=== PATIENT | female | born 1945 | race Caucasian/White ===

== ENCOUNTER → 2020-02-16 13:20 | Outpatient (CLI) | payer MEDICARE, OTHER, SELFPAY ==
--- NOTE | ~2020-02-16 | MM_ITS ---
EXAMINATION: MM screening [facility] BI w suyapa HISTORY: Screening TECHNIQUE: Craniocaudal and mediolateral oblique 3-D tomosynthesis images were obtained and synthetic 2-D images were generated. CAD analysis was submitted and interpreted. COMPARISON: Comparison to multiple prior studies sequentially, with oldest reviewed study dated 10/29. BREAST PARENCHYMAL COMPOSITION: There are scattered areas of fibroglandular density. FINDINGS: There is no evidence of suspicious mass, calcification, or architectural distortion to sugg est malignancy in either breast. There has been no suspicious interval change. IMPRESSION: 1. No mammographic evidence of malignancy. 2. Recommend routine screening mammography in one year. BI-RADS Category 1: Negative Reviewed, dictated and finalized at location A.
== END ==
PROVIDERS: PCP Family Medicine; Visit Provider Family Medicine
DX: Z12.31 Encounter for screening mammogram for malignant neoplasm of breast (principal)
CPT/HCPCS: 77063; 77067

== ENCOUNTER 2020-04-26 10:47 | Emergency (ER) | payer MEDICARE, OTHER, SELFPAY ==
[2020-04-26 10:54] VITALS: BP 176/73; PULSE 99; RESP 20; TEMP 36.8; O2SAT 100
--- NOTE | 2020-04-26 11:01 | ECG_ITS ---
Measurements Intervals [place] Rate: 87 P: 65 FL: 147 QRS: 3 QRSD: 105 T: 56 QT: 359 QTc: 432 Interpretive Statements SINUS RHYTHM NORMAL ECG Electronically Signed On 04-26-2020 11:27:49 [employer] by Sal Bishop D.O.
--- NOTE | 2020-04-26 11:06 | ED.GENADULT ---
HPI - General Adult General Chief complaint: Back Pain/Injury Stated complaint: back pain Time Seen by Provider: 04/26/20 11:00 Source: patient and RN notes reviewed Mode of arrival: ambulatory Limitations: no limitations History of Present Illness HPI narrative: 74 female presents with concern for left shoulder muscle spasm and pain for approximately 3 days. She denies any injury or direct trauma, however reports she has been doing a lot of yard work. Reports pain hurts worse when she is lying on her right side with her left arm dependent. Denies any decreased range of motion or strength. Reports taking Tylenol with no improvement, reports taking Aleve with mild improvement. Reports using ice. Denies any decrease sensation, range of motion, strength in left arm MD complaint: Left shoulder pain Related Data Home Medications Medication Instructions Recorded Confirmed aspirin [Aspirin Low Dose] 81 mg PO DAILY 04/26/20 04/26/20 cranberry fruit concentrate [Azo 25,000 mg PO DAILY 04/26/20 04/26/20 Cranberry] levothyroxine 100 mcg PO DAILY 04/26/20 04/26/20 multivitamin [Daily Multivitamin] 1 tablet PO DAILY 04/26/20 04/26/20 niacin 500 mg PO DAILY 04/26/20 04/26/20 pravastatin 40 mg PO DAILY 04/26/20 04/26/20 Allergies Allergy/AdvReac Type Severity Reaction Status Date / Time No Known Allergies Allergy Verified 04/26/20 11:05 Review of Systems Review of Systems: Narrative: CONSTITUTIONAL: Denies malaise, chills, sweats, or fever. CARDIOVASCULAR: Denies chest pain, palpitations, diaphoresis, or edema. RESPIRATORY: Denies cough or dyspnea. GASTROINTESTINAL: Denies abdominal pain, nausea, vomiting, diarrhea SKIN: Denies bruising, redness MUSCULOSKELETAL: Reports left posterior shoulder blade area pain that radiates to the shoulder joint NEUROLOGIC: Denies numbness, weakness. All systems reviewed & are unremarkable except as noted in HPI and below [facility] Family History Family History (Updated 02/11/15 @ 16:01 by DOCTOR UNKNOWN) Father Carcinoma of colon Patient's father is Acute myocardial infarction Mother Patient's mother is Acute myocardial infarction Social History Social History Smoking status: Never smoker Alcohol intake: never Comments At time of signature, agree with nursing past medical, surgical, social and family history. There is no relevant family history pertinent to the presenting complaint Exam Narrative: Exam Narrative: GENERAL: Well-appearing, well-nourished, and in no acute distress. HEAD: Normocephalic, atraumatic. EYES: PERRLA, conjunctivae clear NECK: Supple. CHEST: Speaks in full sentences. No respiratory distress. HEART: Regular rate and rhythm. Normal and equal peripheral pulses. EXTREMITIES: Left shoulder, arm has normal strength and sensation, normal range of motion. No edema or ecchymosis. 5/5 strength with left shoulder abduction, abduction flexion and extension. Normal sensation with sensitivity to light touch and pain. Mild scapular tenderness. No open wounds, no skin tenting, no devitalized tissue or atrophy, no trophic changes, no obvious deformity, alignment normal, nearby joints and structures intact. Distal pulses palpable and equal bilaterally, skin warm, dry, pink. Capillary refill less than 3 seconds. SKIN: Warm, dry, no rash. NEURO: Alert and oriented x3. PSYCH: Normal mood and affect Course Course Emergency Course: Patient is aware of diagnosis, understands and agrees to treatment plan. Anticipatory guidance given. Patient agrees to follow-up as directed and is aware of reasons to seek care at the emergency department. Portions of this record may have been created with voice recognition software Vital Signs Vital signs: Vital Signs Temperature 98.2 F 04/26/20 10:54 Pulse Rate 99 04/26/20 10:54 Respiratory Rate 20 04/26/20 10:54 Blood Pressure 176/73 H 04/26/20 10:54 Pulse Oximetry 100 04/26/20
== END 2020-04-26 11:22 | disposition home or self-care (01) ==
PROVIDERS: Emergency Provider Nurse Practitioner
DX: M62.838 Other muscle spasm (principal); E78.00 Pure hypercholesterolemia, unspecified; E03.9 Hypothyroidism, unspecified
CPT/HCPCS: 93005; 99213; G0463

== ENCOUNTER → 2020-06-11 10:53 | Outpatient (CLI) | payer MEDICARE, OTHER, SELFPAY ==
--- NOTE | ~2020-06-11 | DEXA_ITS ---
Bone Density Report Name: Mei Valentin Age: 74 Sex: Female Ethnicity: White Date of : 1945 Indication: osteopenia; parental hip fracture; postmenopausal Referring Provider: Jomar, Aureliano Peterson Study: Bone densitometry was performed. Exam Date: June 11, 2020 Accession number: [id number] Bone Density: Region BMD T-score Z-score Classification AP Spine (L1-L4) 0.871 -1.6 0.8 Osteopenia Femoral Neck (Left) 0.697 -1.4 0.7 Osteopenia Total Hip (Left) 0.925 -0.1 1.6 Normal Femoral Neck (Right) 0.636 -1.9 0.1 Osteopenia Total Hip (Right) 0.823 -1.0 0.8 Normal Total Hip Mean 0.874 -0.6 1.2 Normal World Health Organization criteria for BMD impression classify patients as: Normal (T-score at or above -1.0), Osteopenia (T-score between -1.0 and -2.5), or Osteoporosis (T-score at or below -2.5). 10-year Fracture Risk(1): Major Osteoporotic Fracture 20% Hip Fracture 11% Reported Risk Factors: [place] (), Neck BMD=0.636, BMI=31.3, parental fracture (1) FRAX(R) Version 3.08. Fracture probability calculated for an untreated patient. Fracture probability may be lower if the patient has received treatment. Previous Exams: Region Exam Age BMD T-score BMD Change BMD Change Date g/cm2 vs Baseline vs Previous AP Spine(L1-L4) 06/11/2020 74 0.871 -1.6 0.007 -0.031* 01/29/2013 67 0.902 -1.3 0.038* 0.038* 09/20/2009 63 0.865 -1.7 Total Hip(Left) 06/11/2020 74 0.925 -0.1 0.069* 0.031* 01/29/2013 67 0.894 -0.4 0.038* 0.038* 09/20/2009 63 0.856 -0.7 Total Hip(Right) 06/11/2020 74 0.823 -1.0 0.022 -0.093* 01/29/2013 67 0.916 -0.2 0.115* 0.115* 09/20/2009 63 0.801 -1.2 *Denotes significance at 95% confidence level, LSC for AP Spine = 0.022 g/cm2, LSC for Total Hip = 0.027 g/cm2 Clinical Information Provided by Patient: Parent has had a hip fracture Has used the following medications: Vitamin D Patient maximum height was 64 Menopause Age: 54 No regular weight bearing exercise Drinks caffeinated beverages Onset of menses at age 13 Number of children 4 Impression: The patient has low bone mass, based on the Right Femoral Neck T-score. The patient has an estimated ten-year risk of hip fracture of 11% and an estimated ten-year risk of major fracture of 20%, based on the WHO FRAX algorithm. The
== END ==
PROVIDERS: PCP Family Medicine; Visit Provider Family Medicine
DX: Z78.0 Asymptomatic menopausal state (principal); M85.88 Other specified disorders of bone density and structure, other site; M85.852 Other specified disorders of bone density and structure, left thigh; M85.851 Other specified disorders of bone density and structure, right thigh
CPT/HCPCS: 77080

== ENCOUNTER → 2020-08-13 05:06 | Outpatient (CLI) | payer MEDICARE, OTHER, SELFPAY ==
[2020-08-13 19:22] LABS: SARS-CoV-2 RNA PCR Negative
== END ==
PROVIDERS: PCP Family Medicine; Visit Provider Internal Medicine Gastroenterology
DX: Z01.812 Encounter for preprocedural laboratory examination (principal); Z20.822 Contact with and (suspected) exposure to COVID-19
CPT/HCPCS: C9803; U0003; U0005

== ENCOUNTER 2020-08-16 01:39 | Day surgery (SDC) | payer MEDICARE, OTHER, SELFPAY ==
[2020-08-16 07:26] VITALS: BP 143/65; PULSE 84; RESP 18; TEMP 36.9; O2SAT 98; BMI 30.4
[2020-08-16] MEDS: LACTATED RINGERS 1,000 ML 150 ML IV CONT (07:36)
--- NOTE | 2020-08-16 07:53 | PM.HPGS ---
History of Present Illness History of Present Illness Consent: Risks, benefits, and alternatives have been discussed and questions answered. Patient agrees to proceed with procedure. Chief complaint: Family Hx Of Colon Polyps Narrative: Mei Valentin is a 74 year old female here for colon cancer screening. She has family history of colon cancer and of polyps Review of Systems Review of Systems: All systems reviewed & are unremarkable except as noted in HPI and below PMFSH Family History Family History Father Carcinoma of colon Patient's father is Acute myocardial infarction Mother Patient's mother is Acute myocardial infarction Social History Social History Smoking status: Never smoker Alcohol intake: never Living arrangements: alone Gender identity (if verbalized by the patient): Female Spiritual care concerns: No Meds Home Medications and Allergies Home Medications Medication Instructions Recorded Confirmed Type aspirin [Aspirin Low Dose] 81 mg PO DAILY 04/26/20 08/16/20 History cranberry fruit concentrate [Azo 25,000 mg PO DAILY 04/26/20 08/16/20 History Cranberry] cyclobenzaprine 10 mg PO TID PRN #20 tablet 04/26/20 08/16/20 Rx levothyroxine 100 mcg PO DAILY 04/26/20 08/16/20 History multivitamin [Daily Multivitamin] 1 tablet PO DAILY 04/26/20 08/16/20 History naproxen 500 mg PO BID PRN #20 tablet 04/26/20 08/16/20 Rx niacin 500 mg PO DAILY 04/26/20 08/16/20 History pravastatin 40 mg PO DAILY 04/26/20 08/16/20 History sod picosulf 10 mg-magnes 3.5 160 ml PO BID #160 ml 07/22/20 08/16/20 Rx gram-citric 12 gram/160 mL oral solution Vitamin D3 2,000 units PO DAILY 07/30/20 08/16/20 History Allergies Allergy/AdvReac Type Severity Reaction Status Date / Time No Known Allergies Allergy Verified 08/16/20 07:04 Vital Signs Vital Signs - 24 hr 08/16/20 07:26 Temperature 36.9 C Pulse Rate 84 Respiratory Rate 18 Blood Pressure 143/65 H Pulse Oximetry 98 Exam Resp: Auscultation: clear to auscultation bilaterally Cardio: Rate: regular rate Rhythm: regular rhythm GI: GI Palp: Yes Soft to palpation and No Tenderness to palpation present (GI) Assessment and Plan Assessment and plan (1) Colon cancer screening: Code(s): Z12.11 - Encounter for screening for malignant neoplasm of colon Status: Acute Assessment and Plan: Colonoscopy with possible biopsy or polypectomy or cautery or injection of substances.
--- NOTE | 2020-08-16 08:06 | WPDANESEPPF ---
Anes - Initial Pre Proc Eval Procedure: Operation Date: 08/16/20 08:30 Proposed Procedures p Screening Colonoscopy - Reynold Roger MD Date/Time: 08/16/20 08:06 Surgeon: Reynold Roger MD Pre Op Diagnosis: Family Hx Of Colon Polyps Patient Data Age: 74 Gender: F Height: 5 ft 4 in Weight: 80.3 kg Last Vital Signs Temp 98.5 F 08/16/20 07:26 Pulse 84 08/16/20 07:26 Resp 18 08/16/20 07:26 BP 143/65 H 08/16/20 07:26 Pulse Ox 98 08/16/20 07:26 Allergies Allergy/AdvReac Type Severity Reaction Status Date / Time No Known Allergies Allergy Verified 08/16/20 07:04 Home Medications Medication Instructions Recorded Confirmed Type aspirin [Aspirin Low Dose] 81 mg PO DAILY 04/26/20 08/16/20 History cranberry fruit concentrate [Azo 25,000 mg PO DAILY 04/26/20 08/16/20 History Cranberry] cyclobenzaprine 10 mg PO TID PRN #20 tablet 04/26/20 08/16/20 Rx levothyroxine 100 mcg PO DAILY 04/26/20 08/16/20 History multivitamin [Daily Multivitamin] 1 tablet PO DAILY 04/26/20 08/16/20 History naproxen 500 mg PO BID PRN #20 tablet 04/26/20 08/16/20 Rx niacin 500 mg PO DAILY 04/26/20 08/16/20 History pravastatin 40 mg PO DAILY 04/26/20 08/16/20 History sod picosulf 10 mg-magnes 3.5 160 ml PO BID #160 ml 07/22/20 08/16/20 Rx gram-citric 12 gram/160 mL oral solution Vitamin D3 2,000 units PO DAILY 07/30/20 08/16/20 History Patient hx anesthesia problems: none Family hx anesthesia problems: none PMFSH Past Medical History Medical History (Updated 08/16/20 @ 08:03 by Kolby Hurd MD) Hyperlipidemia Hypothyroid Family History Family History Father Carcinoma of colon Patient's father is Acute myocardial infarction Mother Patient's mother is Acute myocardial infarction Social History Social History Smoking status: Never smoker Alcohol intake: never Living arrangements: alone Gender identity (if verbalized by the patient): Female Spiritual care concerns: No Anes - Eval Final PreProcedure Day of Procedure 08/16/20 08:06 Patient weight: obese Heart: regular rate and rhythm Lungs: clear to auscultation Airway: Mallampati scale class II Neurological: alert and oriented Last oral intake: >/= 8 hours ASA classification: III Emergent: no Anesthetic plan: proceed Anesthesia type and monitoring: general GIVS and standard monitoring Informed Consent: The patient's anesthetic plan and its attendant risks and benefits were discussed with the patient/family/POA. Questions were solicited and answers provided to the satisfaction of the patient/family/POA.
[2020-08-16] MEDS: SIMETHICONE ORAL SUSPENSION 20 MG/0.3 ML 30 ML BOTTLE 0.6 ML IRRIGATION (08:32)
[2020-08-16 08:41] VITALS: BP 86/38; PULSE 78; RESP 22; O2SAT 97
[2020-08-16 08:51] VITALS: BP 87/48; PULSE 75; RESP 22; O2SAT 97
[2020-08-16 09:01] VITALS: BP 110/60; PULSE 75; RESP 22; O2SAT 97
[2020-08-16 09:10] VITALS: BP 121/57; PULSE 75; RESP 22; O2SAT 97
== END 2020-08-16 09:15 | disposition home or self-care (01) ==
PROVIDERS: PCP Family Medicine; Visit Provider Internal Medicine Gastroenterology
PROC: 0DJD8ZZ Inspection of Lower Intestinal Tract, Via Natural or Artificial Opening Endoscopic (ICD-10-PCS; CPT 45378; principal; 2020-08-16 08:30)
DX: Z12.11 Encounter for screening for malignant neoplasm of colon (principal); Z80.0 Family history of malignant neoplasm of digestive organs; Z83.71 Family history of colonic polyps; Z79.82 Long term (current) use of aspirin; E03.9 Hypothyroidism, unspecified; E66.9 Obesity, unspecified; Z68.30 Body mass index [BMI] 30.0-30.9, adult
CPT/HCPCS: G0105; J2704; J7120

== ENCOUNTER → 2021-02-23 10:27 | Outpatient (CLI) | payer MEDICARE, OTHER, SELFPAY ==
--- NOTE | ~2021-02-23 | MM_ITS ---
EXAMINATION: MM screening [facility] BI w suyapa HISTORY: Screening TECHNIQUE: Craniocaudal and mediolateral oblique 3-D tomosynthesis images were obtained and synthetic 2-D images were generated. CAD analysis was submitted and interpreted. COMPARISON: Comparison to multiple prior studies sequentially, with oldest reviewed study dated 11/02. BREAST PARENCHYMAL COMPOSITION: There are scattered areas of fibroglandular density. FINDINGS: There is no evidence of suspicious mass, calcification, or architectural distortion to sugg est malignancy in either breast. There has been no suspicious interval change. IMPRESSION: 1. No mammographic evidence of malignancy. 2. Recommend routine screening mammography in one year. BI-RADS Category 1: Negative Reviewed, dictated and finalized at location A.
== END ==
PROVIDERS: PCP Family Medicine; Visit Provider Family Medicine
DX: Z12.31 Encounter for screening mammogram for malignant neoplasm of breast (principal)
CPT/HCPCS: 77063; 77067

== ENCOUNTER 2021-08-16 10:03 | Emergency (ER) | payer MEDICARE, OTHER, SELFPAY ==
[2021-08-16 10:18] VITALS: BP 141/69; PULSE 86; RESP 16; TEMP 36.6; O2SAT 100
--- NOTE | 2021-08-16 10:35 | ED.FEMALEGU ---
HPI - Female Genitourinary General Chief complaint: Urogenital-Female Stated complaint: uti symptoms Time Seen by Provider: 08/16/21 10:21 Source: patient and RN notes reviewed Mode of arrival: ambulatory Limitations: no limitations History of Present Illness HPI Narrative: Patient presents today complaining of urgency and frequency since yesterday afternoon. Denies dysuria, hematuria, abdominal pain or flank pain. Patient takes cranberry pills every day and dose of Uristat last night. Denies any recent antibiotic use, but states during her last UTI she was on Cipro. MD elicited complaint: UTI Related Data Home Medications Medication Instructions Recorded Confirmed Azo Cranberry 25,000 mg PO DAILY 04/26/20 08/16/20 aspirin [Aspirin Low Dose] 81 mg PO DAILY 04/26/20 08/16/20 levothyroxine 100 mcg PO DAILY 04/26/20 08/16/20 multivitamin 1 tablet PO DAILY 04/26/20 08/16/20 niacin 500 mg PO DAILY 04/26/20 08/16/20 pravastatin 40 mg PO DAILY 04/26/20 08/16/20 Vitamin D3 2,000 units PO DAILY 07/30/20 08/16/20 Allergies Allergy/AdvReac Type Severity Reaction Status Date / Time No Known Allergies Allergy Verified 08/16/20 07:04 Review of Systems Review of Systems: CONSTITUTIONAL: Denies body aches, fever, chills, or sweats. EYES: Denies visual changes, redness, or discharge. ENT: Denies rhinorrhea, congestion, sore throat, or otalgia. CARDIOVASCULAR: Denies chest pain, palpitations, or edema. RESPIRATORY: Denies cough or dyspnea. GASTROINTESTINAL: Denies abdominal pain, nausea, vomiting, or diarrhea. GENITOURINARY: Denies dysuria or hematuria.+ Urgency, frequency SKIN: Denies rash, itching, or wounds. MUSCULOSKELETAL: Denies back pain, joint pain, or myalgia. NEUROLOGIC: Denies headache, numbness, tingling, or weakness. PSYCH: Denies depression or anxiety. [facility] Past Medical History Medical History Hyperlipidemia Hypothyroid Family History Family History Father Carcinoma of colon Patient's father is Acute myocardial infarction Mother Patient's mother is Acute myocardial infarction Social History Social History Smoking status: Never smoker Alcohol intake: never Gender identity (if verbalized by the patient): Female Spiritual care concerns: No Comments At time of signature, I have reviewed and agree with nursing past medical, surgical, social and family history unless otherwise noted. Please see nursing chart for further information. There is no relevant family history pertinent to the presenting complaint Exam Narrative: GENERAL: Well-appearing, well-nourished, and in no acute distress. HEAD: Normocephalic, atraumatic. EYES: EOMI. No redness or drainage. Conjunctivae normal. ENT: Mucous membranes pink and moist. NECK: Normal AROM. CHEST: No respiratory distress. Clear to auscultation. HEART: Regular rate and rhythm. No murmur appreciated. Normal peripheral pulses. ABDOMEN: Soft, nontender, nondistended, normal active bowel sounds.-CVAT MUSCULOSKELETAL: No bony tenderness. EXTREMITIES: Normal range of motion. No edema. SKIN: Warm, dry, no rash. Capillary refill normal. Normal skin turgor. NEURO: No focal deficits. Alert and oriented x3. Gait steady. PSYCH: Normal affect. No signs of depression or anxiety. Course Course Level of Care: Express Care Visit Vital Signs Vital signs: Vital Signs Temperature 97.8 F 08/16/21 10:18 Pulse Rate 86 08/16/21 10:18 Respiratory Rate 16 08/16/21 10:18 Blood Pressure 141/69 H 08/16/21 10:18 Pulse Oximetry 100 08/16/21 10:18 Temperature 97.8 F 08/16/21 10:18 Pulse Rate 86 08/16/21 10:18 Respiratory Rate 16 08/16/21 10:18 Blood Pressure 141/69 H 08/16/21 10:18 Pulse Oximetry 100 08/16/21 10:
== END 2021-08-16 10:44 | disposition home or self-care (01) ==
PROVIDERS: Emergency Provider Nurse Practitioner; PCP Family Medicine
DX: N30.01 Acute cystitis with hematuria (principal); E78.5 Hyperlipidemia, unspecified; E03.9 Hypothyroidism, unspecified
CPT/HCPCS: 81003; 87077; 87086; 87088; 87186; 99213; G0463

== ENCOUNTER 2021-08-30 16:40 | Emergency (ER) | payer MEDICARE, OTHER, SELFPAY ==
--- NOTE | 2021-08-30 16:49 | ED.FEMALEGU ---
HPI - Female Genitourinary General Chief complaint: Urogenital-Female Stated complaint: UTI SYMPTOMS Time Seen by Provider: 08/30/21 16:49 Source: patient and RN notes reviewed Mode of arrival: ambulatory Limitations: no limitations History of Present Illness HPI Narrative: 75 y/o female presented for returning 'uti' symptoms after completing course of abx. Endorses urinary urgency and frequency. She was [facility] and treated for uti with cephalexin x7 days. She reports improvement in symptoms until today. Denies hematuria, dysuria, flank pain, abd pain, n/v/d/f/c. States this is her 3rd uti this year. Trying to drink more water. Related Data Home Medications Medication Instructions Recorded Confirmed Azo Cranberry 25,000 mg PO DAILY 04/26/20 08/16/20 aspirin [Aspirin Low Dose] 81 mg PO DAILY 04/26/20 08/16/20 levothyroxine 100 mcg PO DAILY 04/26/20 08/16/20 multivitamin 1 tablet PO DAILY 04/26/20 08/16/20 niacin 500 mg PO DAILY 04/26/20 08/16/20 pravastatin 40 mg PO DAILY 04/26/20 08/16/20 Vitamin D3 2,000 units PO DAILY 07/30/20 08/16/20 Allergies Allergy/AdvReac Type Severity Reaction Status Date / Time No Known Allergies Allergy Verified 08/16/20 07:04 Review of Systems Review of Systems: CONSTITUTIONAL: Denies body aches, fever, chills, or sweats. CARDIOVASCULAR: Denies chest pain, palpitations, or edema. RESPIRATORY: Denies cough or dyspnea. GASTROINTESTINAL: Denies abdominal pain, nausea, vomiting, or diarrhea. GENITOURINARY: Reports frequency, urgency, denies dysuria hematuria, flank pain SKIN: Denies rash, itching, or wounds. MUSCULOSKELETAL: Denies back pain or myalgia. [facility] Past Medical History Medical History Hyperlipidemia Hypothyroid Family History Family History Father Carcinoma of colon Patient's father is Acute myocardial infarction Mother Patient's mother is Acute myocardial infarction Social History Social History Smoking status: Never smoker Alcohol intake: never Gender identity (if verbalized by the patient): Female Spiritual care concerns: No Comments At time of signature, I have reviewed and agree with nursing past medical, surgical, social and family history unless otherwise noted. Please see nursing chart for further information. There is no relevant family history pertinent to the presenting complaint Exam Narrative: GENERAL: Well-appearing HEAD: Normocephalic EYES: EOMI. ENT: Mucous membranes pink and moist. NECK: Normal AROM. Supple. CHEST: No respiratory distress. Clear to auscultation. HEART: Regular rate and rhythm. ABDOMEN: Soft, nontender, nondistended, normal active bowel sounds. No CVA tenderness MUSCULOSKELETAL: No bony tenderness. SKIN: Warm, dry, no rash. NEURO: No focal deficits. Alert and oriented x3. Gait steady. PSYCH: Normal affect. No signs of depression or anxiety. Course Course Emergency Course: Patient is aware of diagnosis, understands and agrees to treatment plan. Anticipatory guidance given. Patient agrees to follow-up as directed and is aware of reasons to seek care at the emergency department. Portions of this record may have been created with voice recognition software Level of Care: Express Care Visit Vital Signs Vital signs: Reviewed MDM - Female Genitourinary MDM Narrative Medical decision making narrative: urine shows blood 1+ and Leuk 1+; Reviewed the urine culture from 08/16/21. Ecoli susceptible to cipro. She is advised to f/u with pcp as this is her 3rd uti this year. v/u. Discharge Plan Discharge Clinical Impression: Urinary urgency Patient Disposition: Home, Self-Care Condition: Stable Instructions: Antibiotic Form, Urinary Tract Infection in Older Adults (ED)
[2021-08-30 16:51] VITALS: BP 167/72; PULSE 87; RESP 16; TEMP 36.3; O2SAT 98
== END 2021-08-30 17:16 | disposition home or self-care (01) ==
PROVIDERS: Emergency Provider Nurse Practitioner Family; PCP Family Medicine
DX: R39.15 Urgency of urination (principal); E78.5 Hyperlipidemia, unspecified; E03.9 Hypothyroidism, unspecified; Z79.82 Long term (current) use of aspirin
CPT/HCPCS: 81003; 87077; 87086; 87088; 87186; 99213; G0463

== ENCOUNTER 2021-09-04 13:41 | Emergency (ER) | payer MEDICARE, OTHER, SELFPAY ==
[2021-09-04 13:45] VITALS: BP 143/91; PULSE 161; RESP 16; TEMP 36.3; O2SAT 99
[2021-09-04 13:59] VITALS: BP 150/96; PULSE 134; RESP 16
--- NOTE | 2021-09-04 13:59 | ECG_ITS ---
Measurements Intervals [place] Rate: 160 P: [place]: 0 QRS: 4 QRSD: 121 T: 21 QT: 255 QTc: 417 Interpretive Statements ATRIAL FLUTTER/TACHYCARDIA WITH 2-1 CONDUCTION INDETERMINATE AXIS COMPARED TO ECG 04/26/2020 11:06:33 ATRIAL FLUTTER NOW PRESENT Electronically Signed On 09-05-2021 16:08:13 CDT by Manolo Mcfarland M.D.
[2021-09-04 14:10] VITALS: BP 148/75; PULSE 152; RESP 16; O2SAT 99
--- NOTE | 2021-09-04 14:16 | ED.GENADULT ---
HPI - General Adult General Chief complaint: Arrhythmia/Palpitations Stated complaint: ELEVATED BLOOD PRESSURE/HEART RATE Source: patient Mode of arrival: ambulatory Limitations: no limitations History of Present Illness HPI narrative: Patient presents for evaluation of feeling cloudy . Symptom onset a few hours after waking from sleep this morning. Yesterday she was in her normal state of health. She checked her pulse at home and states that it was quite high. She came here for further evaluation and treatment. She denies any chest pain or shortness of breath. On arrival here she is in A. fib with RVR. No underlying history of A. fib. Maternal and paternal history of CAD. She states at the present time she does not feel cloudy . She denies symptoms whatsoever. At the time of my initial evaluation her heart rate is in 160's. Related Data Home Medications Medication Instructions Recorded Confirmed Azo Cranberry 25,000 mg PO DAILY 04/26/20 09/04/21 aspirin [Aspirin Low Dose] 81 mg PO DAILY 04/26/20 09/04/21 levothyroxine 100 mcg PO DAILY 04/26/20 09/04/21 multivitamin 1 tablet PO DAILY 04/26/20 09/04/21 niacin 500 mg PO DAILY 04/26/20 09/04/21 pravastatin 40 mg PO DAILY 04/26/20 09/04/21 Vitamin D3 2,000 units PO DAILY 07/30/20 09/04/21 Allergies Allergy/AdvReac Type Severity Reaction Status Date / Time No Known Allergies Allergy Verified 09/04/21 13:51 Review of Systems Review of Systems: CONSTITUTIONAL: Denies fever, chills, or sweats. EYES: Denies visual changes, redness, or discharge. ENT: Denies rhinorrhea, congestion, sore throat, or otalgia. CARDIOVASCULAR: Denies chest pain, palpitations, or edema. RESPIRATORY: Denies cough or dyspnea. GASTROINTESTINAL: Denies abdominal pain, nausea, vomiting, or diarrhea. GENITOURINARY: Denies dysuria or hematuria. SKIN: Denies rash or itching. MUSCULOSKELETAL: Denies back pain, joint pain, or myalgia. NEUROLOGIC: Reports feeling cloudy earlier. Denies headache, numbness, dizziness, or weakness. PSYCHIATRIC: Denies anxiety or depression. FOR[facility]LY [facility] Past Medical History Medical History Hyperlipidemia Hypothyroid Surgical History Surgical History History of appendectomy History of bilateral oophorectomies History of cholecystectomy Family History Family History Father Carcinoma of colon Patient's father is Acute myocardial infarction Mother Patient's mother is Acute myocardial infarction Social History Social History Smoking status: Never smoker Alcohol intake: never Substance use: never Gender identity (if verbalized by the patient): Female Spiritual care concerns: No Exam Narrative: GENERAL: Well-appearing, well-nourished, and in no acute distress. HEAD: Normocephalic, atraumatic. EYES: PERRLA and EOMI. ENT: Nares clear, no rhinorrhea or epistaxis. Mucous membranes moist. Oropharynx without tonsillar hypertrophy exudate or other lesions. Bilateral TMs pearly boudreaux nonbulging NECK: Supple. No adenopathy or masses. No carotid bruits or JVD CHEST: Clear to auscultation. No respiratory distress. No wheezes rales or rhonchi HEART: Heart rate irregularly irregular. Rate 162. No murmur heard. Normal peripheral pulses. ABDOMEN: Soft, nontender, nondistended, normal active bowel sounds. EXTREMITIES: Normal range of motion. No edema. SKIN: Warm, dry, no rash. NEURO: No focal deficits. Alert and oriented x3. PSYCH: Normal mood and affect. Course Course Emergency Course: This is a 75-year-old female who presented for evaluation after feeling cloudy earlier today. On my initial evaluation she is in A. fib with RVR. She has no history of A. fib. She needs further w
[2021-09-04 14:28] VITALS: BP 153/117; PULSE 132; RESP 16; O2SAT 98
== END 2021-09-04 14:32 | disposition short-term general hospital (02) ==
PROVIDERS: Emergency Provider Nurse Practitioner; PCP Family Medicine
DX: I48.91 Unspecified atrial fibrillation (principal); E78.5 Hyperlipidemia, unspecified; E03.9 Hypothyroidism, unspecified
CPT/HCPCS: 93005; 99215; G0463

== ENCOUNTER → 2022-02-27 07:07 | Outpatient (CLI) | payer MEDICARE, OTHER, SELFPAY ==
--- NOTE | ~2022-02-27 | MM_ITS ---
EXAMINATION: MM screening [facility] BI w [facility] HISTORY: Screening TECHNIQUE: Craniocaudal and mediolateral oblique 3-D tomosynthesis images were obtained and synthetic 2-D images were generated. CAD analysis was submitted and interpreted. COMPARISON: Comparison to multiple prior studies sequentially, with oldest reviewed study dated 11/09. BREAST PARENCHYMAL COMPOSITION: There are scattered areas of fibroglandular density. FINDINGS: There is no evidence of suspicious mass, calcification, or architectural distortion to sugg est malignancy in either breast. There has been no suspicious interval change. IMPRESSION: 1. No mammographic evidence of malignancy. 2. Recommend routine screening mammography in one year. BI-RADS Category 1: Negative Reviewed, dictated and finalized at location A.
== END ==
PROVIDERS: PCP Family Medicine; Visit Provider Family Medicine
DX: Z12.31 Encounter for screening mammogram for malignant neoplasm of breast (principal)
CPT/HCPCS: 77063; 77067

== ENCOUNTER → 2023-03-05 07:03 | Outpatient (CLI) | payer MEDICARE, OTHER, SELFPAY ==
--- NOTE | ~2023-03-05 | MM_ITS ---
EXAMINATION: MM screening [facility] w [facility] HISTORY: Screening mammogram TECHNIQUE: Craniocaudal and mediolateral oblique 3-D tomosynthesis images were obtained and synthetic 2-D images were generated. CAD analysis was submitted and interpreted. COMPARISON: 02/27/2022, 02/23/2021, 02/16/2020 right lateral screening mammogram examinations BREAST PARENCHYMAL COMPOSITION: There are scattered areas of fibroglandular density. FINDINGS: Scattered bilateral benign calcifications are again present. There is no evidence of suspic ious mass, calcification, or architectural distortion to suggest malignancy in either breast. There h as been no suspicious interval change. IMPRESSION: 1. No mammographic evidence of malignancy. 2. Recommend routine screening mammography in one year. BI-RADS Category 2: Benign finding(s). Reviewed, dictated and finalized at location A.
== END ==
PROVIDERS: PCP Family Medicine; Visit Provider Family Medicine
DX: Z12.31 Encounter for screening mammogram for malignant neoplasm of breast (principal)
CPT/HCPCS: 77063; 77067

== ENCOUNTER → 2023-06-15 13:04 | Outpatient (CLI) | payer MEDICARE, OTHER, SELFPAY ==
--- NOTE | ~2023-06-15 | DEXA_ITS ---
Bone Density Report Name: GELA GILLILAND Age: 77 Sex: Female Ethnicity: White Date of : 1945 Indication: osteopenia; parental hip fracture; hysterectomy; Referring Provider: Jomar, Aureliano Peterson Study: Bone densitometry was performed. Exam Date: June 15, 2023 Accession number: [id number] Bone Density: Region BMD T-score Z-score Classification AP Spine (L1-L4) 0.881 -1.5 1.0 Osteopenia Femoral Neck (Left) 0.670 -1.6 0.6 Osteopenia Total Hip (Left) 0.909 -0.3 1.7 Normal Femoral Neck (Right) 0.628 -2.0 0.2 Osteopenia Total Hip (Right) 0.785 -1.3 0.6 Osteopenia Total Hip Mean 0.847 -0.8 1.2 Normal World Health Organization criteria for BMD impression classify patients as: Normal (T-score at or above -1.0), Osteopenia (T-score between -1.0 and -2.5), or Osteoporosis (T-score at or below -2.5). 10-year Fracture Risk(1): Major Osteoporotic Fracture 25% Hip Fracture 15% Reported Risk Factors: [place] (), Neck BMD=0.628, BMI=31.1, parental fracture (1) FRAX(R) Version 3.08. Fracture probability calculated for an untreated patient. Fracture probability may be lower if the patient has received treatment. Previous Exams: Region Exam Age BMD T-score BMD Change BMD Change Date g/cm2 vs Baseline vs Previous AP Spine(L1-L4) 06/15/2023 77 0.881 -1.5 0.016 0.010 06/11/2020 74 0.871 -1.6 0.007 -0.031* 01/29/2013 67 0.902 -1.3 0.038* 0.038* 09/20/2009 63 0.865 -1.7 Total Hip(Left) 06/15/2023 77 0.909 -0.3 0.054* -0.016 06/11/2020 74 0.925 -0.1 0.069* 0.031* 01/29/2013 67 0.894 -0.4 0.038* 0.038* 09/20/2009 63 0.856 -0.7 Total Hip(Right) 06/15/2023 77 0.785 -1.3 -0.016 -0.038* 06/11/2020 74 0.823 -1.0 0.022 -0.093* 01/29/2013 67 0.916 -0.2 0.115* 0.115* 09/20/2009 63 0.801 -1.2 *Denotes significance at 95% confidence level, LSC for AP Spine = 0.022 g/cm2, LSC for Total Hip = 0.027 g/cm2 Clinical Information Provided by Patient: Parent has had a hip fracture Has used the following medications: Vitamin D Has the following medical conditions: Hysterectomy Patient maximum height was 64 Menopause Age: 54 No regular weight bearing exercise Drinks caffeinated beverages Onset of menses at age 13 Number of children 4
== END ==
PROVIDERS: PCP Family Medicine; Visit Provider Family Medicine
DX: Z78.0 Asymptomatic menopausal state (principal); M85.88 Other specified disorders of bone density and structure, other site; M85.852 Other specified disorders of bone density and structure, left thigh; M85.851 Other specified disorders of bone density and structure, right thigh
CPT/HCPCS: 77080

== ENCOUNTER 2024-03-10 10:22 | Outpatient (CLI) | payer MEDICARE, OTHER, SELFPAY ==
--- NOTE | ~2024-03-10 | MM_ITS ---
EXAMINATION: MM screening [facility] BI w su[facility] HISTORY: Screening mammogram TECHNIQUE: Craniocaudal and mediolateral oblique 3-D tomosynthesis images were obtained and synthetic 2-D images were generated. CAD analysis was submitted and interpreted. COMPARISON: 03/05/2023, 02/27/2022, 02/23/2021 BREAST PARENCHYMAL COMPOSITION:Not Dense. The breasts are almost entirely fatty FINDINGS: Bilateral benign calcifications are present. No suspicious mass, calcification, or architec tural distortion are identified in either breast to suggest malignancy. There has been no suspicious interval change. IMPRESSION: No mammographic evidence of malignancy. Recommend routine screening mammography in one year. BI-RADS Category 2: Benign finding(s). Reviewed, dictated and finalized at location .
== END 2024-03-10 10:23 | disposition home or self-care (01) ==
PROVIDERS: PCP Family Medicine; Visit Provider Family Medicine
DX: Z12.31 Encounter for screening mammogram for malignant neoplasm of breast (principal)
CPT/HCPCS: 77063; 77067

== ENCOUNTER 2025-03-17 07:07 | Outpatient (CLI) | payer MEDICARE, OTHER, SELFPAY ==
--- NOTE | ~2025-03-17 | MM_ITS ---
EXAMINATION: MM screening [facility] w [facility] HISTORY: Screening TECHNIQUE: Craniocaudal and mediolateral oblique 3-D tomosynthesis images were obtained and synthetic 2-D images were generated. CAD analysis was submitted and interpreted. COMPARISON: Comparison to multiple prior studies sequentially, with oldest reviewed study dated 02/16/2020. BREAST PARENCHYMAL COMPOSITION: The breasts are almost entirely fatty. FINDINGS: There is no evidence of suspicious mass, calcification, or architectural distortion to suggest malignancy in either breast. Scattered benign-appearing calcifications are present. IMPRESSION: 1. No mammographic evidence of malignancy. 2. Recommend routine screening mammography in one year. BI-RADS Category 2: Benign finding(s). Reviewed, dictated and finalized at location B. IOVASCULAR TECHNICIAN
== END 2025-03-17 07:08 | disposition home or self-care (01) ==
LOC: MICIMG 07:09
PROVIDERS: PCP Family Medicine; Visit Provider Family Medicine
DX: Z12.31 Encounter for screening mammogram for malignant neoplasm of breast (principal)
CPT/HCPCS: 77063; 77067